=== PATIENT | female | born 1985 | race Caucasian/White ===

== ENCOUNTER → 2018-06-06 | Outpatient (CLI) | payer OTHER ==
[~2018-06-06] VITALS: Ht 170.2 cm; Wt 76.8 kg
[~2018-06-06] MED LIST: PRENATAL1 TA7 PO; ZANTAC 150MG T150 MG PO
--- NOTE | 2018-06-06 08:15 | NUR ---
Pt here from ER with c/o of ?SROM this AM at 0730. Pt states picking up her 2 year old daughter and feeling leaking and "something trickling down her leg." Pt then states it happening again 5 minutes after first episode. 33.3 weeks gestation G2L1. Pt acting nervous and scared and states she hadn't felt him move much today either. Pt to [facility], explained. Pt denies any complications, vaginal bleeding or contractions. SVE: amniotrace negative, no fluid noted on exam glove and vagina is dry with exam. Cervix closed/thick/high. FHR reactive. Assessment complete. VSS. Will notify Dr Viveros.
--- NOTE | 2018-06-06 09:05 | NUR ---
DC instructions given, pt verbalizes understanding. Pt denies wanting to take the tylenol and states she sees Dr Mayers on Thursday. Pt encouraged to po hdyrate today, pt denies having any water or anthing to eat yet today. Pt notified to come back to hospital for evaluation if contractions are regular, stronger, decreased movement, any further leaking of fluid or any vaginal bleeding. 0915:Pt to personal vehicle.
[2018-06-06 09:10] VITALS: BP 111/79; PULSE 87
== END ==
LOC: LDRO 08:05
DX: O62.9 Abnormality of forces of labor, unspecified (principal); Z3A.33 33 weeks gestation of pregnancy

== ENCOUNTER 2018-07-14 01:35 | Inpatient (IN) | payer OTHER ==
[2018-07-14] VITALS (15 sets, daily range): BP systolic 91–160; BP diastolic 52–77; PULSE 58–93; TEMP 97.6–99.2
[~2018-07-14] VITALS: Ht 170.2 cm; Wt 75.0 kg
[2018-07-14 02:17] LABS: BASO % 0.2 % (0.0-2.0); EOS % 0.2 % (0-4.0); GRAN # 7.6 (1.4-6.5); GRAN % 67.2 % (42.2-75.2); HEMATOCRIT 38.3 % (37.0-47.0); LYMPH # 2.9 (1.2-3.4); LYMPH % 25.8 % (20.0-51.0); MEAN CELL VOLUME 91 fl (80.0-100.0); MEAN CORPUSCULAR HEMOGLOBIN 31 pg (27.0-31.0); MEAN CORPUSCULAR HGB CONC 34 g/dl (33.0-37.0); MEAN PLATELET VOLUME 11.1 fl (7.4-10.4); MONO # 0.6 (0.1-0.6); MONO % 5.3 % (1.7-9.3); PLATELET COUNT 193 K/mm3 (130-400); RED BLOOD COUNT 4.22 M/mm3 (4.10-5.30); REDCELL DISTRIBUTION WIDTH-CV 12.8 % (11.5-14.5)
[2018-07-14] MEDS ORDERED: MULTI VITAMINS1 TAB PO (02:25)
--- NOTE | 2018-07-14 04:00 | NUR ---
0135- Patient into LDR-4 via wheelchair from ED with radiologic tech and . Patient into restroom to change into gown. Patient and spouse oriented to room. Patient into bed. EFM and TOCO on and tracing. Patient has complaints of contractions since 2100 last night and have increased to every 2 minutes since 0000. Patient denies LOF, bleeding, or spotting. SVE /-1. 0145- updated. Admission orders received. 0200- Assessment completed. GENA Tipton notified for epidural. 0220- GENA Tipton at bedside. Patient repositioned to sitting upright for epidural placement. 0230- Test Dose. See Anesthesia Record. 0235- SVE /-1. 0255- SROM. Moderate amount of clear, odorless fluid. Patient is having increased, intense pain and pressure in perineum. RN remains at bedside. 0305- Complete/+2. 0307- called for delivery. Patient encouraged to breath through contractions at this time until MD can arrive for delivery. 0317- at bedside. Labor room prepped for delivery. 0323- of viable baby boy. Cord clamped and cut. Cord blood obtained. 0325- Spontaneous delivery of placenta. Fundus massaged to firm by . MLE repaired by . Pitocin infusing at 333 ml/hr. Pericare provided. 0330- PP Recovery started.
--- NOTE | 2018-07-14 09:02 | NUR ---
Initial visit; Mom indisposed, Hemodialysis Rn offered congratulations to Dad for the of their son and thanked them for choosing our hospital.
[2018-07-15 08:16] VITALS: BP 103/65; PULSE 53; TEMP 98.1
== END 2018-07-15 11:50 | disposition home or self-care (01) | DRG 807 ==
LOC: LDRO 01:35 → OB 02:25 → LDR 02:25 → OB 02:25
PROVIDERS: ADMIT Obstetrics & Gynecology
PROC: 10E0XZZ Delivery of Products of Conception, External Approach (ICD-10-PCS; principal; 2018-07-14)
PROC: 0W8NXZZ Division of Female Perineum, External Approach (ICD-10-PCS; 2018-07-14)
DX: O69.81X0 Labor and delivery complicated by cord around neck, without compression, not applicable or unspecified (principal); Z37.0 Single live birth; Z3A.38 38 weeks gestation of pregnancy
CPT/HCPCS: J2590; J7120

== ENCOUNTER 2020-10-14 19:31 | Inpatient (IN) | payer OTHER ==
[2020-10-14] VITALS (8 sets, daily range): BP systolic 90–133; BP diastolic 56–80; PULSE 76–118; TEMP 97.9
[~2020-10-14] VITALS: Ht 170.2 cm; Wt 77.7 kg
[~2020-10-14 19:31] MED LIST changes: +MULTI VITAMINS1 TAB PO
--- NOTE | 2020-10-14 19:40 | NUR ---
1939- PATIENT WHEELED UP TO UNIT WITH BY HER SIDE. PATIENT ORIENTATED TO ROOM AND CHANGED INTO CLEAN GOWN. PATIENT IS A AT 39.1 WHO PRESENTS WITH CONTRACTIONS THAT ARE ABOUT 2 MINUTES APART AND STARTED ABOUT AN HOUR AGO. PATIENT HAS NO COMPLICATIONS, HAS FAMILY HX OF MALIGNANT HYPOTHERMIA. REPORTS GFM, NO LOF, NO BLEEDING. 1943- EFM AND TOCO ON AND TRACING. VITALS TAKEN ASSESSMENT COMPLETED. 1949- SVE REVEALED 8-9/100/0 STATION WITH BULDGING BAG. 1951- NOTIFIED PHYSICIAN AND GO ORDERS, SEE PHYSICIAN NOTIFICATION. 1952- NOTIFIED ANESTHESIA THAT PATIENT WANTS EPIDURAL. 1999- IV STARTED AND CONSENTS SIGNED. 2009- DR. SUMNER TO BEDSIDE. SVE REVEALS 9100/0. PATIENT HOPING TO GET EPIDURAL DOSE SO SHE DOES NOT FEEL EVERYTHING. 2011- CLARE, DANCE HISTORIAN AT BEDSIDE FOR EPIDURAL. 2015- TEST DOSE, SEE ANESTHESIA RECORD. 2026- DR. SUMNER TO BEDSIDE AGAIN. PATIENT ALREADY FEELING MUCH BETTER, CAN SEE FEEL SOME PRESSURE BUT NOT NEAR MUCH. AROM, WITH LIGHT MECONIUM NOTED. PATIENT HAD A CONTRACTION AFTER AROM AND FELT A LOT MORE PRESSURE. DR. SUMNER CHECKED PATIENT AND STATED IT WAS TIME FOR DELIVERY. PATIENT AND ROOM SET UP FOR DELIVERY. NURSERY NURSE CALLED AND NOTIFIED. 2034- OF VIABLE MALE . INFANT PLACED TO MOTHER ABDOMEN WHERE NURSERY NURSE ASSUMES CARE. CORD CLAMPED BY PROVIDER AND CUT BY FATHER OF THE BABY. THEN PLACED SKIN TO SKIN WITH MOTHER. 2039- OF PLACENTA. PITOCIN STARTED PER PROTOCOL AT 333ML/HR. FUNDUS MASSAGED TO FIRM BY PROVIDER. 2ND DEGREE TEAR NOTED AND REPAIRED BY PROVIDER AFTER LIDOCAINE INJECTION DUE TO PATIENT STILL BEING ABLE TO FEEL WHAT THE PROVIDER WAS DOING 2049- RECOVERY STARTED - VITALS STABLE, FUNDUS FIRM. PATIENT AND ROOM CLEANED BACK UP AND PUT BACK TOGETHER. PERIPAD AND ICEPACK TO PERINEUM.
[2020-10-14 20:14] LABS: BASO % 0.2 % (0.0-2.0); EOS % 0.2 % (0-4.0); GRAN # 7.8 (1.4-6.5); GRAN % 68.6 % (42.2-75.2); HEMATOCRIT 40.5 % (37.0-47.0); HEMOGLOBIN 13.6 g/dl (12.5-16.0); LYMPH # 2.8 (1.2-3.4); MEAN CELL VOLUME 91 fl (80.0-100.0); MEAN CORPUSCULAR HEMOGLOBIN 31 pg (27.0-31.0); MEAN CORPUSCULAR HGB CONC 34 g/dl (33.0-37.0); MEAN PLATELET VOLUME 11.2 fl (7.4-10.4); MONO # 0.5 (0.1-0.6); MONO % 4.6 % (1.7-9.3); PLATELET COUNT 193 K/mm3 (130-400); RED BLOOD COUNT 4.45 M/mm3 (4.10-5.30); REDCELL DISTRIBUTION WIDTH-CV 12.8 % (11.5-14.5)
[2020-10-15] VITALS: BP 117/67; PULSE 97; TEMP 98.7
[2020-10-15] MEDS ORDERED: MOTRIN 800800 MG/TAB PO (06:55)
[2020-10-15 08:09] VITALS: BP 124/68; PULSE 82; TEMP 98.1
--- NOTE | 2020-10-15 10:20 | NUR ---
Initial visit; Family thanked [employer] for offering congratulations and God's blessings for the of their son. [employer] thanked family for choosing [facility].
[2020-10-15 16:27] VITALS: BP 126/76; PULSE 78; TEMP 97.8
[2020-10-15 19:30] VITALS: BP 101/61; PULSE 64; TEMP 97.9
--- NOTE | 2020-10-15 21:55 | NUR ---
THIS RN WATCHED PATIENT AND SPOUSE PUT INFANT IN THE CARSEAT AND WALKED PATIENT AND SPOUSE OUT TO THEIR CAR AND LISTENED TO CARSEAT CLICK INTO BASE.
== END 2020-10-15 21:55 | disposition home or self-care (01) | DRG 807 ==
LOC: LDRO 19:31 → LDR 19:56 → OB 19:56
PROVIDERS: Student in an Organized Health Care Education/Training Program; ADMIT Obstetrics & Gynecology
PROC: 10E0XZZ Delivery of Products of Conception, External Approach (ICD-10-PCS; principal; 2020-10-14)
PROC: 0KQM0ZZ Repair Perineum Muscle, Open Approach (ICD-10-PCS; 2020-10-14)
PROC: 10907ZC Drainage of Amniotic Fluid, Therapeutic from Products of Conception, Via Natural or Artificial Opening (ICD-10-PCS; 2020-10-14)
PROC: 3E033VJ Introduction of Other Hormone into Peripheral Vein, Percutaneous Approach (ICD-10-PCS; 2020-10-14)
DX: O77.0 Labor and delivery complicated by meconium in amniotic fluid (principal); Z37.0 Single live birth; O70.1 Second degree perineal laceration during delivery; Z3A.39 39 weeks gestation of pregnancy
CPT/HCPCS: J2590; J2795; J7120